=== PATIENT | male | born 1945 | race Caucasian/White ===

== ENCOUNTER → 2024-10-21 17:24 | Outpatient (CLI) | payer OTHER, SELFPAY ==
--- NOTE | 2024-10-21 17:31 | DI.MRI.S_ITS ---
PROCEDURE: MR FOOT LT WO/W CON INDICATIONS: FOOT PAIN TECHNIQUE: Multiphasic, multisequence MRI of the forefoot was performed, before and after intravenous contrast administration. COMPARISON: [facility] [place], [place], XR TOE(S) LEFT, 10/10/2024, 12:09. FINDINGS: Image quality: Diagnostic. Bones and joints: Examination of osseous structures shows marrow edema and mild contrast enhancement involving 1st and 2nd distal phalanges. Questionable bony erosive changes involving plantar aspect of 1st distal phalanx is also noted. No other area of abnormal marrow signal or enhancement. Susceptibility artifacts are noted adjacent to dorsal aspect of 4th metatarsal shaft partially limits evaluation. Soft tissues: Soft tissue swelling and edema surrounding distal portion of 1st and 2nd toe extending to dorsal aspect of midfoot and forefoot is seen. Mild myositis in visualized plantar foot muscles are also noted. No discrete drainable fluid collection. No enhancing soft tissue mass. Extensor and flexor tendons are intact. Lisfranc ligament is intact. IMPRESSION: 1. Cellulitis involving medial and dorsal aspect of midfoot and forefoot particularly adjacent to 1st and 2nd toe. No discrete drainable abscess collection. 2. Finding is suggestive of osteomyelitis involving 1st distal phalanx and likely 2nd distal phalanx. No acute fracture or dislocation. No other area intraosseous enhancement. Midfoot and forefoot joint osteoarthritis. 3. Mild myositis involving visualized plantar foot muscles. No abnormal intramuscular enhancement. Dictated by: Dani Almanzar M.D. on 10/22/2024 at 9:52 Approved by: Dani Almanzar M.D. on 10/22/2024 at 9:59
== END ==
PROVIDERS: PCP Registered Nurse; Referring Provider Registered Nurse; Visit Provider Podiatrist
DX: L03.116 Cellulitis of left lower limb (principal); M19.072 Primary osteoarthritis, left ankle and foot; M60.872 Other myositis, left ankle and foot; R22.40 Localized swelling, mass and lump, unspecified lower limb
CPT/HCPCS: 73720; A9579